=== PATIENT | male | born 1995 | race Caucasian/White ===

== ENCOUNTER 2017-09-23 06:38 | Emergency (ER) | payer OTHER ==
[2017-09-23] MEDS: NS 1,000 ML IV ×2 (07:30)
[2017-09-23] MEDS: METOCLOPRAMIDE INJ 10MG/2ML VIAL (J2765) IV (07:59)
[2017-09-23] MEDS: SUCRALFATE SUSP 1GM/10ML UD PO (08:02)
[2017-09-23 08:07] LABS: BASO % 0.5 % (0.0-1.0); EOS # 0.1 10^3/uL (0.0-0.50); EOS % 1.2 % (0.0-3.0); HEMATOCRIT 47.6 % (42.0-52.0); HEMOGLOBIN 16.3 g/dl (13.5-17.5); IMMATURE GRANULOCYTE % 0.3 % (0-3.0); LYMPH # 2.2 10^3/uL (1.5-6.5); LYMPH % 28.7 % (24.0-44.0); MEAN CORPUSCULAR HGB CONC 34.2 g/dl (32.0-36.5); MEAN CORPUSCULAR VOLUME 87.7 fl (80.0-96.0); MONO # 0.5 10^3/uL (0.0-0.8); MONO % 7.2 % (0.0-5.0); NEUTROPHILS # 4.7 10^3/uL (1.8-7.7); NEUTROPHILS % 62.1 % (36.0-66.0); PLATELET COUNT, AUTOMATED 168 10^3/uL (150-450); RED BLOOD COUNT 5.43 10^6/uL (4.30-6.10); RED CELL DISTRIBUTION WIDTH 13.7 % (11.5-14.5); WHITE BLOOD COUNT 7.5 10^3/uL (4.0-10.0)
[2017-09-23 08:29] LABS: ALBUMIN 3.5 GM/DL (3.2-5.2); ALKALINE PHOSPHATASE 65 U/L (45-117); ALT/SGPT 29 U/L (12-78); ANION GAP 7 MEQ/L (8-16); AST/SGOT 23 U/L (7-37); BILIRUBIN,DIRECT < 0.1 MG/DL (0.0-0.2); BILIRUBIN,TOTAL 0.4 MG/DL (0.2-1.0); BLOOD UREA NITROGEN 8 MG/DL (7-18); CALCIUM LEVEL 8.5 MG/DL (8.5-10.1); CARBON DIOXIDE LEVEL 22 MEQ/L (21-32); CHLORIDE LEVEL 112 MEQ/L (98-107); CREATININE FOR GFR 0.92 MG/DL (0.70-1.30); GLOMERULAR FILTRATION RATE > 60.0 (>60); GLUCOSE, FASTING 86 MG/DL (70-100); LIPASE 80 U/L (73-393); SODIUM LEVEL 141 MEQ/L (136-145)
== END 2017-09-23 10:56 | disposition home or self-care (01) ==
LOC: M ED 06:38
DX: R11.10 Vomiting, unspecified (principal); Z91.013 Allergy to seafood
CPT/HCPCS: J2765

== ENCOUNTER 2018-01-04 12:02 | Emergency (ER) | payer OTHER ==
[2018-01-04 13:22] LABS: VENOUS BASE EXCESS 0.7 (-2.0-2.0); VENOUS HCO3 25.1 MEQ/L (23.0-27.0); VENOUS O2 SATURATION 97.4 % (60.0-80.0); VENOUS PARTIAL PRESSURE CO2 39.6 mmHg (38.0-50.0); VENOUS PARTIAL PRESSURE O2 94.6 mmHg (30.0-50.0); VENOUS STANDARD HCO3 25.1 MEQ/L; VENOUS TOTAL CO2 26.3 MEQ/L (24.0-28.0)
[2018-01-04] MEDS: ACETAMINOPHEN 325 MG TAB PO (13:26)
[2018-01-04 13:27] LABS: BASO # 0.1 10^3/uL (0.0-0.2); BASO % 0.4 % (0.0-1.0); EOS # 0.1 10^3/uL (0.0-0.50); EOS % 0.8 % (0.0-3.0); HEMATOCRIT 45.8 % (42.0-52.0); HEMOGLOBIN 16.1 g/dl (13.5-17.5); IMMATURE GRANULOCYTE % 0.4 % (0-3.0); LYMPH # 1.8 10^3/uL (1.5-6.5); LYMPH % 15.6 % (24.0-44.0); MEAN CORPUSCULAR HEMOGLOBIN 30.6 pg (27.0-33.0); MEAN CORPUSCULAR HGB CONC 35.2 g/dl (32.0-36.5); MEAN CORPUSCULAR VOLUME 87.1 fl (80.0-96.0); MONO # 0.5 10^3/uL (0.0-0.8); MONO % 4.6 % (0.0-5.0); NEUTROPHILS # 9.2 10^3/uL (1.8-7.7); NEUTROPHILS % 78.2 % (36.0-66.0); PLATELET COUNT, AUTOMATED 227 10^3/uL (150-450); RED BLOOD COUNT 5.26 10^6/uL (4.30-6.10); RED CELL DISTRIBUTION WIDTH 12.8 % (11.5-14.5); WHITE BLOOD COUNT 11.7 10^3/uL (4.0-10.0)
[2018-01-04 13:41] LABS: ANION GAP 7 MEQ/L (8-16); BLOOD UREA NITROGEN 15 MG/DL (7-18); CALCIUM LEVEL 8.4 MG/DL (8.5-10.1); CARBON DIOXIDE LEVEL 25 MEQ/L (21-32); CHLORIDE LEVEL 108 MEQ/L (98-107); CREATININE FOR GFR 0.84 MG/DL (0.70-1.30); GLOMERULAR FILTRATION RATE > 60.0 (>60); GLUCOSE, FASTING 93 MG/DL (70-100); POTASSIUM SERUM 3.9 MEQ/L (3.5-5.1); SODIUM LEVEL 140 MEQ/L (136-145)
[2018-01-04 13:58] LABS: INFLUENZA A AMPLIFICATION NEGATIVE (NEGATIVE); INFLUENZA B AMPLIFICATION NEGATIVE (NEGATIVE)
== END 2018-01-04 14:32 | disposition home or self-care (01) ==
LOC: M ED 12:02
DX: J40 Bronchitis, not specified as acute or chronic (principal); Z91.018 Allergy to other foods; F17.210 Nicotine dependence, cigarettes, uncomplicated
CPT/HCPCS: 71046

== ENCOUNTER 2018-01-05 06:42 | Emergency (ER) | payer OTHER ==
[2018-01-05] MEDS: IBUPROFEN 800 MG TAB PO (07:32)
[2018-01-05] MEDS: CYCLOBENZAPRINE 10 MG TAB PO (07:32)
== END 2018-01-05 07:37 | disposition home or self-care (01) ==
LOC: M ED 06:42
DX: S39.012A Strain of muscle, fascia and tendon of lower back, initial encounter (principal); V43.52XA Car driver injured in collision with other type car in traffic accident, initial encounter; Y92.410 Unspecified street and highway as the place of occurrence of the external cause; Z91.013 Allergy to seafood; Z79.2 Long term (current) use of antibiotics
CPT/HCPCS: 99284

== ENCOUNTER 2018-01-18 17:28 | Inpatient (IN) | payer OTHER ==
[2018-01-18] MEDS ORDERED: MORPHINE 4 MG/ML 1ML VIAL/SYRINGE (J2270) As Ordered (17:37)
[2018-01-18] MEDS: MORPHINE 4 MG/ML 1ML VIAL/SYRINGE (J2270) IV ×4 (17:40→23:45)
[2018-01-18] MEDS ORDERED: ISOVUE-370 76% 100ML VIAL (Q9967) As Ordered (17:50)
[2018-01-18 17:52] LABS: BASO # 0.1 10^3/uL (0.0-0.2); BASO % 0.4 % (0.0-1.0); EOS # 0.1 10^3/uL (0.0-0.50); EOS % 0.3 % (0.0-3.0); HEMATOCRIT 47.1 % (42.0-52.0); HEMOGLOBIN 16.5 g/dl (13.5-17.5); IMMATURE GRANULOCYTE % 0.4 % (0-3.0); LYMPH # 2.7 10^3/uL (1.5-6.5); LYMPH % 13.2 % (24.0-44.0); MEAN CORPUSCULAR HEMOGLOBIN 30.8 pg (27.0-33.0); MONO # 1.1 10^3/uL (0.0-0.8); MONO % 5.4 % (0.0-5.0); NEUTROPHILS # 16.6 10^3/uL (1.8-7.7); NEUTROPHILS % 80.3 % (36.0-66.0); PLATELET COUNT, AUTOMATED 238 10^3/uL (150-450); RED BLOOD COUNT 5.35 10^6/uL (4.30-6.10); RED CELL DISTRIBUTION WIDTH 13.1 % (11.5-14.5); WHITE BLOOD COUNT 20.7 10^3/uL (4.0-10.0)
[2018-01-18 18:04] LABS: INR 0.99; PROTHROMBIN TIME 13.1 SECONDS (12.1-14.4)
[2018-01-18 18:06] LABS: PARTIAL THROMBOPLASTIN TIME 23.1 SECONDS (25.4-37.6)
[2018-01-18 18:15] LABS: LACTIC ACID SEPSIS PROTOCOL 1.5 MMOL/L (0.4-2.0)
[2018-01-18 18:16] LABS: ALBUMIN/GLOBULIN RATIO 1.14 (1.00-1.93); ALKALINE PHOSPHATASE 67 U/L (45-117); ALT/SGPT 34 U/L (12-78); AMYLASE 46 U/L (25-115); ANION GAP 7 MEQ/L (8-16); AST/SGOT 20 U/L (7-37); BILIRUBIN,DIRECT 0.1 MG/DL (0.0-0.2); BILIRUBIN,TOTAL 0.4 MG/DL (0.2-1.0); BLOOD UREA NITROGEN 10 MG/DL (7-18); CALCIUM LEVEL 8.7 MG/DL (8.5-10.1); CARBON DIOXIDE LEVEL 28 MEQ/L (21-32); CHLORIDE LEVEL 105 MEQ/L (98-107); CPK CREATINE PHOSPHOKINASE 262 U/L (39-308); CREATININE FOR GFR 0.86 MG/DL (0.70-1.30); ETHYL ALCOHOL (ETHANOL) < 0.003 % (0.000-0.010); GLOMERULAR FILTRATION RATE > 60.0 (>60); GLUCOSE, FASTING 80 MG/DL (70-100); LIPASE 116 U/L (73-393); MB/CK RELATIVE INDEX 0.65 (< OR =4); SODIUM LEVEL 140 MEQ/L (136-145); TOTAL PROTEIN 7.5 GM/DL (6.4-8.2); TROPONIN I < 0.02 NG/ML (< 0.10)
[2018-01-18 19:07] LABS: APPEARANCE, URINE CLEAR (CLEAR); BACTERIA, URINE AUTO NEGATIVE (NEGATIVE); BILIRUBIN, URINE AUTO NEGATIVE (NEGATIVE); BLOOD, URINE BLOOD NEGATIVE (NEGATIVE); COLOR, URINE YELLOW (YELLOW); GLUCOSE, URINE (UA) AUTO NEGATIVE (NEGATIVE); KETONE, URINE AUTO TRACE mg/dL (NEGATIVE); LEUKOCYTE ESTERASE, URINE AUTO NEGATIVE (NEGATIVE); MUCUS, URINE SMALL (NEGATIVE); NITRITE, URINE AUTO NEGATIVE (NEGATIVE); PROTEIN, URINE AUTO NEGATIVE (NEGATIVE); RBC, URINE AUTO 1 /HPF (0-3); SPECIFIC GRAVITY URINE AUTO 1.029 (1.002-1.035); SQUAMOUS EPITHELIAL CELL UR AU 0 /HPF (0-6); UROBILINOGEN, URINE AUTO 0.2 mg/dL (0.0-2.0); WBC, URINE AUTO 1 /HPF (0-3)
[2018-01-18 19:23] LABS: AMPHETAMINES LEVEL URINE NEGATIVE (NEGATIVE); BARBITURATES URINE NEGATIVE (NEGATIVE); BENZODIAZEPINES URINE NEGATIVE (NEGATIVE); CANNABINOIDS URINE POSITIVE (NEGATIVE); COCAINE METABOLITE URINE NEGATIVE (NEGATIVE); METHADONE URINE NEGATIVE (NEGATIVE); OPIATES URINE POSITIVE (NEGATIVE); PHENCYCLIDINE URINE NEGATIVE (NEGATIVE)
[2018-01-18] MEDS ORDERED: BISACODYL 5 MG TAB PO (20:15)
[2018-01-18] MEDS ORDERED: ONDANSETRON 4MG/2ML VIAL (J2405) IV (20:15)
[2018-01-18] MEDS ORDERED: PERCOCET 5MG/325MG TAB PO (20:15)
[2018-01-18] MEDS ORDERED: ACETAMINOPHEN 500 MG TAB PO (20:15)
[2018-01-18] MEDS: PERCOCET 5MG/325MG TAB PO (20:38)
[2018-01-18 20:45] LABS: MYOGLOBIN 275 NG/ML (16-116)
[2018-01-18] MEDS: NICOTINE 14 MG/24 HR TRANSDERMAL TD (23:21)
[2018-01-19 07:18] LABS: CPK CREATINE PHOSPHOKINASE 405 U/L (39-308)
[2018-01-19] MEDS: PERCOCET 5MG/325MG TAB PO (07:46)
== END 2018-01-19 10:07 | disposition home or self-care (01) | DRG 914 ==
LOC: M ED 17:28 → M ED INP 20:03 → M PED 22:00
DX: S77.12XA Crushing injury of left thigh, initial encounter (principal); W23.0XXA Caught, crushed, jammed, or pinched between moving objects, initial encounter; Y92.009 Unspecified place in unspecified non-institutional (private) residence as the place of occurrence of the external cause

== ENCOUNTER 2018-01-25 18:31 | Inpatient (IN) | payer OTHER ==
[~2018-01-25] VITALS: Ht 167.6 cm; Wt 74.6 kg
[~2018-01-25 18:31] MED LIST: CYCL10TA PO; IBUP-1022 PO; PERC5TAB12 PO; PROAAER10 INH; ZITHTAB PO
[2018-01-25] MEDS ORDERED: NAPR-885 PO (18:48)
[2018-01-25] MEDS ORDERED: ONDANSETRON 4MG/2ML VIAL (J2405) IV ONE (19:15)
[2018-01-25] MEDS ORDERED: CHARCOAL ACTIVATED LIQUID 25 GM/120 ML BTL PO ONE (19:15)
[2018-01-25] MEDS ORDERED: NS 1,000 ML IV ONE (19:15)
[2018-01-25 19:19] LABS: HEMATOCRIT 44.7 % (42.0-52.0); HEMOGLOBIN 15.4 g/dl (13.5-17.5); MEAN CORPUSCULAR HGB CONC 34.5 g/dl (32.0-36.5); MEAN CORPUSCULAR VOLUME 89.9 fl (80.0-96.0); PLATELET COUNT, AUTOMATED 220 10^3/uL (150-450); RED BLOOD COUNT 4.97 10^6/uL (4.30-6.10); WHITE BLOOD COUNT 12.8 10^3/uL (4.0-10.0)
[2018-01-25 19:26] LABS: AMPHETAMINES LEVEL URINE NEGATIVE (NEGATIVE); BARBITURATES URINE NEGATIVE (NEGATIVE); BENZODIAZEPINES URINE NEGATIVE (NEGATIVE); CANNABINOIDS URINE POSITIVE (NEGATIVE); COCAINE METABOLITE URINE NEGATIVE (NEGATIVE); METHADONE URINE NEGATIVE (NEGATIVE); OPIATES URINE NEGATIVE (NEGATIVE); PHENCYCLIDINE URINE NEGATIVE (NEGATIVE)
--- NOTE | 2018-01-25 19:36 | ECGEPIP ---
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
[2018-01-25 20:06] LABS: ACETAMINOPHEN LEVEL < 2.0 UG/ML (10.0-30.0); ALT/SGPT 33 U/L (12-78); BILIRUBIN,DIRECT < 0.1 MG/DL (0.0-0.2); BILIRUBIN,TOTAL 0.7 MG/DL (0.2-1.0); BLOOD UREA NITROGEN 9 MG/DL (7-18); CALCIUM LEVEL 8.4 MG/DL (8.5-10.1); CARBON DIOXIDE LEVEL 27 MEQ/L (21-32); CHLORIDE LEVEL 105 MEQ/L (98-107); CREATININE FOR GFR 0.95 MG/DL (0.70-1.30); ETHYL ALCOHOL (ETHANOL) < 0.003 % (0.000-0.010); GLOMERULAR FILTRATION RATE > 60.0 (>60); GLUCOSE, FASTING 102 MG/DL (70-100); POTASSIUM SERUM 3.7 MEQ/L (3.5-5.1); SALICYLATE LEVEL < 1.7 MG/DL (5.0-30.0); SODIUM LEVEL 141 MEQ/L (136-145); THYROID STIMULATING HORMONE 0.826 uIU/ML (0.358-3.740); TOTAL PROTEIN 6.9 GM/DL (6.4-8.2)
[2018-01-26] MEDS ORDERED: ACETAMINOPHEN TAB 650MG DOSE (2X325MG) PO PRN (01:00)
[2018-01-26] MEDS ORDERED: MAALOX 30 ML SUSP *UDC PO PRN (01:00)
[2018-01-26] MEDS ORDERED: traZODone 50 MG TAB PO PRN (01:00)
[2018-01-26] MEDS ORDERED: MOM 30ML SUSPENSION UDC PO PRN (01:00)
[2018-01-26 03:05] VITALS: BP 136/69
[2018-01-26 06:51] VITALS: BP 116/67
[2018-01-26] MEDS: NICOTINE 21MG/24HR 1 EA TRANSDERMAL TD SCH (09:30)
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
[2018-01-26 18:00] VITALS: BP 143/84
[2018-01-27 06:15] VITALS: BP 124/60
[2018-01-27 07:05] LABS: HEMATOCRIT 45.7 % (42.0-52.0); HEMOGLOBIN 15.6 g/dl (13.5-17.5); MEAN CORPUSCULAR HGB CONC 34.1 g/dl (32.0-36.5); MEAN CORPUSCULAR VOLUME 90.7 fl (80.0-96.0); PLATELET COUNT, AUTOMATED 211 10^3/uL (150-450); RED BLOOD COUNT 5.04 10^6/uL (4.30-6.10)
[2018-01-27] MEDS: NICOTINE 21MG/24HR 1 EA TRANSDERMAL TD SCH (09:14)
[2018-01-27 18:00] VITALS: BP 111/57
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
[2018-01-27] MEDS ORDERED: NICO21PAT TD (19:04)
[2018-01-28 06:50] VITALS: BP 104/59
[2018-01-28] MEDS: NICOTINE 21MG/24HR 1 EA TRANSDERMAL TD SCH (09:00)
--- NOTE | 2018-01-29 13:07 | MHDS ---
DATE OF ADMISSION: 01/26/2018 DATE OF DISCHARGE: 01/28/2018 DIAGNOSES: 1. Major depressive disorder. 2. Marijuana use disorder. 3. Rule out adjustment disorder with depressed and anxious mood. IDENTIFYING DATA: He is a 22-year-old male who presented to emergency room for overdosing on pills, brought from [place]. 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 For details about history of present illness, past psychiatric history, medical history, family history, social history please refer to the initial evaluation. COURSE IN THE HOSPITAL: The patient initially stated that he was depressed and afterwards he reported that he is not depressed; however, the patient was using cannabis and he has cannabis use disorder. It was thought that it is probably because of the substance use that he had suicidal thoughts and he was given trazodone to help him with his sleep and continued on individual, group and milieu therapy. His depression resolved and he started attending groups and activities. He was stable at the time of discharge. VITAL SIGNS: Temperature 96.7, respiratory rate is 16, pulse is 64, blood pressure 114/69. MEDICATIONS: - trazodone 50 mg at night LABORATORIES: Toxicology is positive for cannabis. CMP and CBC within normal limits. REVIEW OF SYSTEMS: Without any chest pain, palpitations. Denied any abdominal pain, dysuria. Denied any shortness of breath or cough. Denied numbness, tingling. Gait is normal. PLAN: The patient will be discharged back to [facility].
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
== END 2018-01-28 11:15 | disposition home or self-care (01) | DRG 881 ==
LOC: M ED 18:31 → M ED INP 01-26 00:51 → M PSY 01-26 02:00
PROVIDERS: ADMIT Psychiatry & Neurology Psychiatry; ATTEND Psychiatry & Neurology Psychiatry
DX: F32.9 Major depressive disorder, single episode, unspecified (principal); F17.200 Nicotine dependence, unspecified, uncomplicated; F12.90 Cannabis use, unspecified, uncomplicated; F43.23 Adjustment disorder with mixed anxiety and depressed mood; Z91.013 Allergy to seafood; D72.829 Elevated white blood cell count, unspecified

== ENCOUNTER 2018-08-09 01:13 | Emergency (ER) | payer OTHER ==
[~2018-08-09] VITALS: Ht 167.6 cm; Wt 77.3 kg
[~2018-08-09 01:13] MED LIST changes: +NAPR-885 PO; +NICO21PAT TD
[2018-08-09] MEDS ORDERED: NS 1,000 ML IV ONE (01:45)
[2018-08-09 02:40] LABS: BASO # 0.1 10^3/uL (0.0-0.2); BASO % 0.7 % (0.0-1.0); EOS # 0.2 10^3/uL (0.0-0.50); EOS % 1.9 % (0.0-3.0); HEMATOCRIT 42.6 % (42.0-52.0); HEMOGLOBIN 14.7 g/dl (13.5-17.5); LYMPH # 2.6 10^3/uL (1.5-6.5); MEAN CORPUSCULAR HEMOGLOBIN 30.6 pg (27.0-33.0); MEAN CORPUSCULAR HGB CONC 34.5 g/dl (32.0-36.5); MEAN CORPUSCULAR VOLUME 88.6 fl (80.0-96.0); MONO # 0.8 10^3/uL (0.0-0.8); MONO % 8.6 % (0.0-5.0); NEUTROPHILS # 5.5 10^3/uL (1.8-7.7); NEUTROPHILS % 60.6 % (36.0-66.0); PLATELET COUNT, AUTOMATED 177 10^3/uL (150-450); RED BLOOD COUNT 4.81 10^6/uL (4.30-6.10); WHITE BLOOD COUNT 9.1 10^3/uL (4.0-10.0)
[2018-08-09 03:04] LABS: ALBUMIN 3.5 GM/DL (3.2-5.2); ALT/SGPT 25 U/L (12-78); BILIRUBIN,DIRECT < 0.1 MG/DL (0.0-0.2); BILIRUBIN,TOTAL 0.3 MG/DL (0.2-1.0); BLOOD UREA NITROGEN 14 MG/DL (7-18); CALCIUM LEVEL 8.4 MG/DL (8.5-10.1); CARBON DIOXIDE LEVEL 28 MEQ/L (21-32); CHLORIDE LEVEL 108 MEQ/L (98-107); CREATININE FOR GFR 0.94 MG/DL (0.70-1.30); GLOMERULAR FILTRATION RATE > 60.0 (>60); GLUCOSE, FASTING 91 MG/DL (70-100); LIPASE 464 U/L (73-393); POTASSIUM SERUM 4.3 MEQ/L (3.5-5.1); SODIUM LEVEL 141 MEQ/L (136-145); TOTAL PROTEIN 6.7 GM/DL (6.4-8.2)
[2018-08-09 03:26] VITALS: BP 115/55
== END 2018-08-09 03:33 | disposition home or self-care (01) ==
LOC: M ED 01:13
DX: K52.9 Noninfective gastroenteritis and colitis, unspecified (principal); F17.210 Nicotine dependence, cigarettes, uncomplicated; Z91.013 Allergy to seafood

== ENCOUNTER 2018-09-02 14:00 | Inpatient (IN) | payer OTHER ==
[~2018-09-02] VITALS: Ht 167.6 cm; Wt 77.0 kg
[2018-09-02 15:46] LABS: HEMATOCRIT 45.2 % (42.0-52.0); HEMOGLOBIN 15.8 g/dl (13.5-17.5); MEAN CORPUSCULAR HEMOGLOBIN 31.5 pg (27.0-33.0); PLATELET COUNT, AUTOMATED 193 10^3/uL (150-450); RED BLOOD COUNT 5.02 10^6/uL (4.30-6.10); WHITE BLOOD COUNT 9.1 10^3/uL (4.0-10.0)
[2018-09-02 16:17] LABS: AMPHETAMINES LEVEL URINE NEGATIVE (NEGATIVE); BARBITURATES URINE NEGATIVE (NEGATIVE); BENZODIAZEPINES URINE NEGATIVE (NEGATIVE); CANNABINOIDS URINE POSITIVE (NEGATIVE); COCAINE METABOLITE URINE NEGATIVE (NEGATIVE); METHADONE URINE NEGATIVE (NEGATIVE); OPIATES URINE NEGATIVE (NEGATIVE); PHENCYCLIDINE URINE NEGATIVE (NEGATIVE)
[2018-09-02 16:27] LABS: ACETAMINOPHEN LEVEL < 2.0 UG/ML (10.0-30.0); ALBUMIN 4.1 GM/DL (3.2-5.2); ALT/SGPT 52 U/L (12-78); BILIRUBIN,DIRECT 0.1 MG/DL (0.0-0.2); BILIRUBIN,TOTAL 0.5 MG/DL (0.2-1.0); BLOOD UREA NITROGEN 14 MG/DL (7-18); CARBON DIOXIDE LEVEL 29 MEQ/L (21-32); CHLORIDE LEVEL 105 MEQ/L (98-107); CREATININE FOR GFR 0.95 MG/DL (0.70-1.30); ETHYL ALCOHOL (ETHANOL) < 0.003 % (0.000-0.010); GLOMERULAR FILTRATION RATE > 60.0 (>60); GLUCOSE, FASTING 107 MG/DL (70-100); POTASSIUM SERUM 3.8 MEQ/L (3.5-5.1); SALICYLATE LEVEL < 1.7 MG/DL (5.0-30.0); SODIUM LEVEL 140 MEQ/L (136-145); THYROID STIMULATING HORMONE 0.916 uIU/ML (0.358-3.740); TOTAL PROTEIN 7.5 GM/DL (6.4-8.2)
[2018-09-02] MEDS ORDERED: traZODone 50 MG TAB PO PRN (17:30)
[2018-09-02] MEDS ORDERED: MAALOX 30 ML SUSP *UDC PO PRN (17:30)
[2018-09-02 21:02] VITALS: BP 123/59
[2018-09-02] MEDS: MOM 30ML SUSPENSION UDC PO PRN (21:59)
[2018-09-03 06:48] VITALS: BP 122/60
[2018-09-03] MEDS: NICOTINE 21MG/24HR 1 EA TRANSDERMAL TD SCH (09:06)
--- NOTE | 2018-09-03 09:24 | MHHPEPDOC ---
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. When the patient was met with, he described significant depression with loss of interest, fatigue, concentration and focus problems, severe depressed mood and suicidal thoughts for the last several months. He described that the stressors continually make him more anxious where he generally worries about "everything", but denies any overt episodes of panic. He describes that he is not on any current medication, he was recently admitted to the inpatient unit earlier this year. Review Of Systems Depression: As above. Anxiety: As above. Toshia: The patient denies any episodes of euphoria/dysphoria associated with decreased need for sleep, hedonism, talkatively or impulsivity lasting longer than 5 days. Psychotic: The patient denies any experiences of auditory or visual hallucinations. They deny any episodes of paranoia or delusional thinking in the past Trauma: The patient denies any traumatic events associated with nightmares or intrusive thoughts. Borderline: Not screened at this time. Past Psychiatric History The patient has a history of reported depression, it is unclear whether adjus tment or not. He was admitted to the inpatient unit in January 2018 for similar problems. He reports a history of recent suicidal thoughts, but none in the past. He is currently on no medication and does not appear to have been tried on medications in the past. Allergies Please see below. Family Psychiatric History The patient denies any family history of mental health problems, substance abuse or suicide. 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 He graduated high school, grew up in [place]. He described that he had had a difficult adjustment to the local area during the [place]. He is currently being chapter out of the due to being convicted of possessing drugs namely cannabis. He has had difficulties with his superiors and [place] an ex-girlfriend who reportedly has possession of the homes. He generally resides in the [facility], but reports never being . Substance Abuse History The patient reports having a history of alcohol use namely drinking one to three times a week roughly eight drinks at a time primarily in a binging pattern, however, he reports only one binge in the last three months. He reports tobacco use significantly and marijuana, but denies any other illicit drugs. He reports that he has not drunk an alcohol in the last three weeks. Medical History Patient has no significant past medical history. Mental Status Examination General: Well dressed with good hygiene Speech: Spontaneous and fluid Thought processes: Linear and logical MSK: Smooth and coordinated gait, no signs of tremors or involuntary orofacial movements Thought content: Hopeless Abstract reasoning, and computation: Intact Description of associations: Intact Description of abnormal or psychotic thoughts: Denies any suicidal or homicidal ideation. Denies any auditory or visual hallucinations. Does not appear to be responding to internal stimuli. Does not appear to be endorsing any bizarre or paranoid ideation. Judgment: Poor Insight: Poor Orientation: Alert and orientated 3 Cognition: Grossly normal Recent and remote memory: Intact Attention span and concentration: Intact Fund of knowledge: Adequate Mood: "Fine" Affect: Dysthymic with a constricted range. Diagnoses Unspecified depressive disorder. Rule out adjustment versus MDD. Tobacco use disorder. Alcohol use disorder. Cannabis use disorder. 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 depression, however, a trial of medication could be helpful due to the increasing suicidal thoughts. Disposition Patient will need an admission likely greater than two midnights in order to stabilize his depressive symptoms and titrate an appropriate medication. Problem List 1. Risk for suicide. 2. Substance abuse. 3. Depression. Initial Treatment Plan 1. Patient was admitted on a 9.39 legal status. 2. Complete history was obtained. 3. With patients permission, family will be contacted and database will be expanded. 4. Patients medication regimen will be reviewed and changed accordingly. 5. Patient will be provided with protected environment. 6. Patient will be treated with individual, group, and milieu therapies. 7. Patient will receive supportive psych-education. 8. Discharge planning will commence immediately. 9. Outpatient follow-up treatment will be strongly recommended. 10. The initial treatment plan will focus initially on: Start Wellbutrin 150 mg extended-release daily. Explained the risks, benefits and potential side effects to the patient of which he elected to start medication. Estimated Length Of Stay 3 days. Time Spent 30 minutes. Thursday Vital Signs Vital Signs Date Time Temp Pulse Resp B/P (MAP) Pulse Ox O2 Delivery O2 Flow Rate FiO2 09/03/18 08:04 Room Air 09/03/18 06:48 99.0 74 16 122/60 (80) 09/02/18 21:02 97 Laboratory Data 24H Labs Laboratory Tests 2 09/02/18 15:15: Nucleated Red Blood Cells % (auto) 0.0, Anion Gap 6L, Glomerular Filtration Rate > 60.0, Calcium Level 9.0, Aspartate Amino Transf (AST/SGOT) 82H, Alanine Aminotransferase (ALT/SGPT) 52, Alkaline Phosphatase 66, Total Bilirubin 0.5, Direct Bilirubin 0.1, Total Protein 7.5, Albumin 4.1, Albumin/Globulin Ratio 1.21, Thyroid Stimulating Hormone (TSH) 0.916, Salicylates Level < 1.7L, Acetaminophen Level < 2.0L, Ethyl Alcohol Level < 0.003 09/02/18 15:40: Urine Amphetamines Screen NEGATIVE, Urine Benzodiazepines Screen NEGATIVE, Urine Opiates Screen NEGATIVE, Urine Methadone Screen NEGATIVE, Urine Barbiturates Screen NEGATIVE, Urine Phencyclidine Screen NEGATIVE, Urine Cocaine Metabolite Screen NEGATIVE, Urine Cannabinoids Screen POSITIVEH CBC/BMP Laboratory Tests 09/02/18 15:15 Red Blood Count 5.02, Mean Corpuscular Volume 90.0, Mean Corpuscular Hemoglobin 31.5, Mean Corpuscular Hemoglobin Concent 35.0, Red Cell Distribution Width 12.8 Medications No Active Prescriptions or Reported Meds Allergies Coded Allergies: FISH (Verified Allergy, Severe, anaphylaxis, 01/05/18) KALE ARMANDO DO Sep 03, 2018 09:24
[2018-09-03] MEDS ORDERED: buPROPion **XL** TABLET 150MG (WELLBUTRIN XL) PO ONE (10:15)
[2018-09-03] MEDS: buPROPion **XL** TABLET 150MG (WELLBUTRIN XL) PO SCH (10:16)
--- NOTE | 2018-09-03 14:13 | REP ---
REASON FOR EXAM: Knee pain, no trauma. No priors. AP and lateral views show no abnormalities. Electronically Signed by Roque Stein DO 09/03/2018 02:16 P
[2018-09-03] MEDS ORDERED: NICOTINE 21MG/24HR 1 EA TRANSDERMAL TD ONE (16:00)
--- NOTE | 2018-09-03 17:15 | REP ---
MRI RIGHT KNEE: TECHNIQUE: Axial proton density fat saturation, sagittal proton density T2 STIR, water excitation, coronal proton density, proton density fat saturation. The menisci show no evidence of a tear. The cruciate and collateral ligaments are intact. The extensor mechanism is intact. No osteochondral defect is seen. There is no bone marrow edema or occult fracture. There is a small joint effusion. There is no popliteal cyst. IMPRESSION: Small joint effusion. No evidence of internal derangement. No osteochondral defect. Electronically Signed by Duc Addison MD 09/07/2018 05:42 P
[2018-09-03 17:38] VITALS: BP 129/66
[2018-09-03] MEDS: RAMELTEON 8 MG TAB (ROZEREM) PO SCH (21:21)
[2018-09-03] MEDS: MOM 30ML SUSPENSION UDC PO PRN (21:21)
[2018-09-03] MEDS: OLANZapine ORAL DISINTEGRATING TAB 5MG PO PRN (21:21)
[2018-09-04 06:54] VITALS: BP 112/62
[2018-09-04] MEDS: buPROPion **XL** TABLET 150MG (WELLBUTRIN XL) PO SCH (09:42)
[2018-09-04] MEDS: NICOTINE 21MG/24HR 1 EA TRANSDERMAL TD SCH (09:44)
[2018-09-04 14:09] LABS: ANTINUCLEAR ANTIBODIES DIRECT Negative (Negative)
[2018-09-04 18:00] VITALS: BP 124/60
[2018-09-04] MEDS: RAMELTEON 8 MG TAB (ROZEREM) PO SCH (21:27)
[2018-09-04] MEDS ORDERED: zolPIDEM TARTRATE 5 MG TAB PO ONE (22:15)
[2018-09-04 22:58] VITALS: BP 125/70
[2018-09-05 07:00] VITALS: BP 114/69
--- NOTE | 2018-09-05 07:23 | IPNPDOC ---
Date Seen The patient was seen on 09/03/18. Progress Note CHIEF COMPLAINT: Suicide Ideation HISTORY OF PRESENTING ILLNESS: 22yoM admitted to [facility] for unspecified depressive disorder, and suicide ideation being medically examined today. He c/o pain in the right knee and low back pain worse when he does physical training and admits to taking up to 1600 mg of advil daily as outpt. He denies any falls due to knee instability, swelling, or redness. He denies any fevers, chills, weakness, fatigue, HEART, CP, SOB, cough, palpitations, abdominal pain, N/V/D or changes in bowel or bladder habits. 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 Well-nourished, well developed. No acute distress. Alert and oriented x 3. Pleasant, interactive. no conversational dyspnea or use of accessory respiratory muscles HEENT: Normocephalic, atraumatic. Pupils are equal, round, and reactive to light. Extraocular movements are intact. No nystagmus appreciated. Sclera are nonicteric. Conjunctiva without injection. Nose midline. Nasal turbinates without bogginess. EACs both patent BL. TMs both visualized and beard with good cone of light, no bulging or erythema. No facial asymmetry. Moist mucous membranes. Dentition fair. Pharynx pink and moist, no cobblestoning. Neck supple, trachea midline. No lymphadenopathy or thyromegaly appreciated. CHEST: Regular rate and rhythm, +S1, +S2, no murmurs, nondisplaced PMI, no rubs, no gallops LUNGS: Clear to auscultation bilaterally. No wheezes, rales, or rhonchi. Breathing appears symmetric and easy. Patient is speaking in full sentences. No accessory muscle use. no adventitious breath sounds ABD: Round, soft, non-tender, non-distended. +Bowel sounds throughout. No rebound or guarding. No costovertebral angle tenderness. EXT: Pulses 2+ bilaterally dorsalis pedis and radial. No lower extremity edema appreciated. No calf pain. Right knee no effusion, erythema, or tenderness. limited rom with internal rotation due to pain. SKIN: [place], dry, warm. No rashes. tattoos NEURO: Alert and oriented x 3. Cranial nerves III-XII are intact. No focal deficits appreciated. LABORATORY DATA, IMAGING STUDIES, MICROBIOLOGY: REVIEWED, PLS SEE BELOW ASSESSMENT AND PLAN: 22yoM admitted to [facility] for unspecified depressive disorder, and suicide ideation being medically examined today. He c/o pain in the right knee and low back pain worse when he does physical training and admits to taking up to 1600 mg of advil daily as outpt. He denies any falls due to knee instability, swelling, or redness. He denies any fevers, chills, weakness, fatigue, HEART, CP, SOB, cough, palpitations, abdominal pain, N/V/D or changes in bowel or bladder habits. Suicide Ideation/ Depression managed by primary psychiatric team Right knee pain no c/o of fever, erythema, joint effusion no h/o rheumatological disease or recent trauma will check Xray and MRI right knee VS, I&O, 24H, Fishbone Vital Signs/I&O Vital Signs Date Time Temp Pulse Resp B/P (MAP) Pulse Ox O2 Delivery O2 Flow Rate FiO2 09/03/18 08:04 Room Air 09/03/18 06:48 99.0 74 16 122/60 (80) 09/02/18 21:02 97 Laboratory Data 24H LABS Laboratory Tests 2 09/02/18 15:15: Nucleated Red Blood Cells % (auto) 0.0, Anion Gap 6L, Glomerular Filtration Rate > 60.0, Calcium Level 9.0, Aspartate Amino Transf (AST/SGOT) 82H, Alanine Aminotransferase (ALT/SGPT) 52, Alkaline Phosphatase 66, Total Bilirubin 0.5, Direct Bilirubin 0.1, Total Protein 7.5, Albumin 4.1, Albumin/Globulin Ratio 1.21, Thyroid Stimulating Hormone (TSH) 0.916, Salicylates Level < 1.7L, Acetaminophen Level < 2.0L, Ethyl Alcohol Level < 0.003 09/02/18 15:40: Urine Amphetamines Screen NEGATIVE, Urine Benzodiazepines Screen NEGATIVE, Urine Opiates Screen NEGATIVE, Urine Methadone Screen NEGATIVE, Urine Barbiturates Screen NEGATIVE, Urine Phencyclidine Screen NEGATIVE, Urine Cocaine Metabolite Screen NEGATIVE, Urine Cannabinoids Screen POSITIVEH 09/03/18 12:27: Erythrocyte Sedimentation Rate 2, C-Reactive Protein, Quantitative < 0.30 CBC/BMP Laboratory Tests 09/02/18 15:15 Red Blood Count 5.02, Mean Corpuscular Volume 90.0, Mean Corpuscular Hemoglobin 31.5, Mean Corpuscular Hemoglobin Concent 35.0, Red Cell Distribution Width 12.8 HUSSEIN HEBERT MD Sep 03, 2018 14:35
[2018-09-05] MEDS: buPROPion **XL** TABLET 150MG (WELLBUTRIN XL) PO SCH (08:08)
[2018-09-05] MEDS: NICOTINE 21MG/24HR 1 EA TRANSDERMAL TD SCH (08:08)
[2018-09-05 18:00] VITALS: BP 142/78
[2018-09-05] MEDS: OLANZapine ORAL DISINTEGRATING TAB 5MG PO PRN (19:30)
[2018-09-05] MEDS: RAMELTEON 8 MG TAB (ROZEREM) PO SCH (21:00)
[2018-09-05] MEDS: zolPIDEM TARTRATE 5 MG TAB PO PRN (22:02)
[2018-09-06 06:42] VITALS: BP 123/71
--- NOTE | 2018-09-06 07:52 | MHIPN ---
DATE: 09/04/2018 The patient today states that he continues to feel depressed, although not having any suicidal thoughts. MENTAL STATUS EXAMINATION: This is alert and oriented times three. He is pleasant, cooperative, verbally spontaneous. Eye contact is fair. Psychomotor activity is normal. There is no formal thought disorder noted. Mood is depressed. Affect is full range and appropriate. He is not psychotic, suicidal or homicidal. Concentration and memory are good. Insight and judgment fair. DIAGNOSES: 1. Major depressive disorder, recurrent, moderate. 2. Cannabis use disorder. TREATMENT PLAN: At this point we will continue to further evaluate the patient for continued resolution of suicidal ideation and for stabilization of his mood. We will continue to titrate medication as indicated.
--- NOTE | 2018-09-06 07:53 | MHIPN ---
DATE: 09/05/2018 The patient tells me that his mood is okay, but he did not sleep good last night despite the fact we increased Seroquel to 100 mg and so I decided to go ahead, when they called me last night that he was not sleeping, to give him an Ambien and he said that it helped. MENTAL STATUS EXAMINATION: He is alert and oriented times three. He is verbally spontaneous. Eye contact is fairly good. There is no formal thought disorder noted. He says his mood is good. Affect is full range and appropriate. He is not psychotic, suicidal or homicidal. Concentration is fair. Memory intact. Insight and judgment fair. DIAGNOSES: 1. Major depressive disorder. 2. Cannabis use disorder. TREATMENT PLAN: At this point, the patient will be further monitored for continued elevation and stabilization of his mood and continued resolution of any suicidal ideations. Again, we have added Ambien 10 mg at night as needed for insomnia.
[2018-09-06] MEDS: buPROPion **XL** TABLET 150MG (WELLBUTRIN XL) PO SCH (08:12)
[2018-09-06] MEDS: NICOTINE 21MG/24HR 1 EA TRANSDERMAL TD SCH (08:12)
--- NOTE | 2018-09-06 11:41 | MHIPNPDOC ---
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 Interval History The patient is met with today. He describes that he is worried about his commanders finding out about his positive cannabinoid test. On admission, he reports that he still feels depressed, anxious and unable to sleep. He reports the Ambien is helpful for his sleeping and the Wellbutrin is helpful for his mood. He notes his moods are much less variable and that he is able to attend to his needs better, however, he reports that he still feels stressed when thinking about work and feels that he is not ready to go home. Staff reported the patient has been attempting to be more social, but generally has difficulties with being reserved on the unit. Review Of Systems The patient reports some mild improvement in energy and focus, however, still reports low mood, loss of interest and high anxiety levels as well as insomnia. Denies any side effects from Wellbutrin at this time. Psychotherapy None on this visit. Vital Signs Reviewed. Mental Status Examination General: Well dressed with good hygiene Speech: Spontaneous and fluid Thought processes: Linear and logical MSK: Smooth and coordinated gait, no signs of tremors or involuntary orofacial movements Thought content: Hopeless Abstract reasoning, and computation: Intact Description of associations: Intact Description of abnormal or psychotic thoughts: Denies any suicidal or homicidal ideation. Denies any auditory or visual hallucinations. Does not appear to be responding to internal stimuli. Does not appear to be endorsing any bizarre or paranoid ideation. Judgment: Improved. Insight: Improved. Orientation: Alert and orientated 3 Cognition: Grossly normal Recent and remote memory: Intact Attention span and concentration: Intact Fund of knowledge: Adequate Mood: "Fine" Affect: Dysthymic with a constricted range. Diagnoses Unspecified depressive disorder. Cannabis use disorder. Assessment and Plan The patient appears to be making some modest improvements on the Wellbutrin 150 mg daily and this will be continued. Ambien 10 mg nightly will be continued for sleep, however, this is likely a poor option for outpatient due to its control substance nature. The patient needs further time in order to titrate the medications and observe if helpful. Disposition The patient will need a further inpatient admission in order to address his depression as well as titrate his medications to effective dose. Time Spent 15 minutes face to face. Thursday Vital Signs Vital Signs Date Time Temp Pulse Resp B/P (MAP) Pulse Ox O2 Delivery O2 Flow Rate FiO2 09/06/18 06:42 97.9 50 12 123/71 (88) 09/05/18 07:47 Room Air 09/04/18 22:58 99 Current Medications Current Medications Medications (Trade) Dose Ordered Sig/Keesha Route PRN Reason Start Time Stop Time Status Last Admin Dose Admin Acetaminophen (Tylenol Tab) 650 mg Q6HP PRN PO HEADACHE or DISCOMFORT 09/02/18 17:30 Al Hydrox/Mg Hydrox/Simethicone (Mylanta) 30 ml Q4HP PRN PO HEARTBURN/INDIGESTION 09/02/18 17:30 Bupropion HCl (Wellbutrin Xl) 150 mg DAILY PO 09/03/18 09:00 09/06/18 08:12 Home Med (Med Rec Complete!) ASDIRECTED XX 09/02/18 17:45 09/02/18 17:45 DC Magnesium Hydroxide (Milk Of Magnesia) 30 ml DAILYPRN PRN PO CONSTIPATION 09/02/18 17:30 09/03/18 21:21 Nicotine (Nicoderm Cq 21mg) 1 patch DAILY TD 09/03/18 09:00 09/06/18 08:12 Olanzapine (ZyPREXA ZYDIS) 5 mg Q8HP PRN PO ANXIETY/AGITATION 09/02/18 17:30 09/05/18 19:30 Ramelteon (Rozerem) 8 mg QHS PO 09/03/18 21:00 09/04/18 21:27 Trazodone HCl (Desyrel) 50 mg QHSP PRN PO INSOMNIA 09/02/18 17:30 09/03/18 10:05 DC 09/02/18 21:59 Zolpidem Tartrate (Ambien) 10 mg QHSP PRN PO insomnia 09/05/18 15:00 09/05/18 22:02 Allergies Coded Allergies: FISH (Verified Allergy, Severe, anaphylaxis, 01/05/18) KALE ARMANDO DO Sep 06, 2018 11:41
[2018-09-06 18:00] VITALS: BP 133/86
[2018-09-06] MEDS: RAMELTEON 8 MG TAB (ROZEREM) PO SCH (21:40)
[2018-09-06] MEDS: ACETAMINOPHEN TAB 650MG DOSE (2X325MG) PO PRN (21:40)
[2018-09-06] MEDS: zolPIDEM TARTRATE 5 MG TAB PO PRN (22:35)
[2018-09-07 07:01] VITALS: BP 107/73
[2018-09-07] MEDS: buPROPion **XL** TABLET 150MG (WELLBUTRIN XL) PO SCH (08:01)
[2018-09-07] MEDS: NICOTINE 21MG/24HR 1 EA TRANSDERMAL TD SCH (08:02)
[2018-09-07] MEDS: ACETAMINOPHEN TAB 650MG DOSE (2X325MG) PO PRN ×2 (08:02→22:46)
--- NOTE | 2018-09-07 16:01 | MHIPNPDOC ---
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 Interval History The patient is met with today, both individually and in group therapy. 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 He describes his depression is improving with less hopelessness and improved mood. He reports his fatigue and energy problems are resolving, however, he worries about his future as he has had an argument with his parents, where they have stated that he no longer is welcome to stay with them if he leaves the . He does feel trapped in this situation, however, explored with patient the idea of mindfulness with positive effects. Staff reports the patient has been attending to his needs, going to groups and is generally pleasant. Review Of Systems Patient denies any side effects from Wellbutrin at this time. He reports some over sedation from the combination of Rozerem and Ambien the previous evening, but no dizziness. Psychotherapy None on this visit. Vital Signs Reviewed. Mental Status Examination General: Well dressed with good hygiene Speech: Spontaneous and fluid Thought processes: Linear and logical MSK: Smooth and coordinated gait, no signs of tremors or involuntary orofacial movements Thought content: Future orientated Abstract reasoning, and computation: Intact Description of associations: Intact Description of abnormal or psychotic thoughts: Denies any suicidal or homicidal ideation. Denies any auditory or visual hallucinations. Does not appear to be responding to internal stimuli. Does not appear to be endorsing any bizarre or paranoid ideation. Judgment: Improving Insight: Improving Orientation: Alert and orientated 3 Cognition: Grossly normal Recent and remote memory: Intact Attention span and concentration: Intact Fund of knowledge: Adequate Mood: "okay" Affect: Dysthymic with a constricted range. Diagnoses Unspecified depressive disorder: Improving. Cannabis use disorder: Stable. Assessment and Plan The patient appears to be making some progress in groups and in individual one-on-one sessions. The Wellbutrin 150 mg as well as Rozerem combination is ideal. The Ambien taken together last night likely over sedated him and will likely be unhelpful as an outpatient, and thus will be discontinued. Disposition The patient will need a further inpatient admission in order to titrate the medications to full effect and plan for a safe and effective discharge. The current plan is for or Thursday this week. Time Spent 25 minutes [id number]. Thursday Vital Signs Vital Signs Date Time Temp Pulse Resp B/P (MAP) Pulse Ox O2 Delivery O2 Flow Rate FiO2 09/07/18 07:01 97.7 70 14 107/73 (84) 09/05/18 07:47 Room Air 09/04/18 22:58 99 Current Medications Current Medications Medications (Trade) Dose Ordered Sig/Keesha Route PRN Reason Start Time Stop Time Status Last Admin Dose Admin Acetaminophen (Tylenol Tab) 650 mg Q6HP PRN PO HEADACHE or DISCOMFORT 09/02/18 17:30 09/07/18 08:02 Al Hydrox/Mg Hydrox/Simethicone (Mylanta) 30 ml Q4HP PRN PO HEARTBURN/INDIGESTION 09/02/18 17:30 Bupropion HCl (Wellbutrin Xl) 150 mg DAILY PO 09/03/18 09:00 09/07/18 08:01 Home Med (Med Rec Complete!) ASDIRECTED XX 09/02/18 17:45 09/02/18 17:45 DC Magnesium Hydroxide (Milk Of Magnesia) 30 ml DAILYPRN PRN PO CONSTIPATION 09/02/18 17:30 09/03/18 21:21 Nicotine (Nicoderm Cq 21mg) 1 patch DAILY TD 09/03/18 09:00 09/07/18 08:02 Olanzapine (ZyPREXA ZYDIS) 5 mg Q8HP PRN PO ANXIETY/AGITATION 09/02/18 17:30 09/05/18 19:30 Ramelteon (Rozerem) 8 mg QHS PO 09/03/18 21:00 09/06/18 21:40 Trazodone HCl (Desyrel) 50 mg QHSP PRN PO INSOMNIA 09/02/18 17:30 09/03/18 10:05 DC 09/02/18 21:59 Zolpidem Tartrate (Ambien) 10 mg QHSP PRN PO insomnia 09/05/18 15:00 09/07/18 14:12 DC 09/06/18 22:35 Allergies Coded Allergies: FISH (Verified Allergy, Severe, anaphylaxis, 01/05/18) KALE ARMANDO DO Sep 07, 2018 16:01
[2018-09-07 18:12] VITALS: BP 136/70
[2018-09-07] MEDS: RAMELTEON 8 MG TAB (ROZEREM) PO SCH (21:59)
[2018-09-08 06:41] VITALS: BP 112/72
[2018-09-08] MEDS: buPROPion **XL** TABLET 150MG (WELLBUTRIN XL) PO SCH (08:23)
[2018-09-08] MEDS: NICOTINE 21MG/24HR 1 EA TRANSDERMAL TD SCH (08:23)
--- NOTE | 2018-09-08 09:55 | MHIPNPDOC ---
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 Interval History The patient is met with today and he describes he's generally feeling better. He had taken the previous discussion and psychotherapy to heart from the previous day and had been living more "in the moment." He described he'd a positive discussion with his mom about mindfulness and reports that he's feeling much more prepared for discharge tomorrow. He reports he's tolerating the Wellbutrin well with no side effects. 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 He reports he's tolerating the Rozerem well, however, he wonders whether the Ambien discontinue had some rebound insomnia. Otherwise, he reports he is doing well. He is clean shaven and nursing has no concerns. He's had no behavioral problems overnight and is reportedly doing well in groups. Review Of Systems Reports improved anxiety and worry, improved depression, hopelessness with improved energy. Psychotherapy None on this visit. Vital Signs Reviewed. Mental Status Examination General: Well dressed with good hygiene Speech: Spontaneous and fluid Thought processes: Linear and logical MSK: Smooth and coordinated gait, no signs of tremors or involuntary orofacial movements Thought content: Future orientated Abstract reasoning, and computation: Intact Description of associations: Intact Description of abnormal or psychotic thoughts: Denies any suicidal or homicidal ideation. Denies any auditory or visual hallucinations. Does not appear to be responding to internal stimuli. Does not appear to be endorsing any bizarre or paranoid ideation. Judgment: fair Insight: fair Orientation: Alert and orientated 3 Cognition: Grossly normal Recent and remote memory: Intact Attention span and concentration: Intact Fund of knowledge: Adequate Mood: "okay" Affect: Euthymic with a full range Diagnoses Unspecified depressive disorder: Stable. Cannabis use disorder: Stable. Assessment and Plan The patient has made strong progress in his admission and has done well. It's unclear whether he has adjustment or primary mental health problem. However, we'll continue Wellbutrin 150 mg daily extended-release and Rozerem 8 mg nightly as this combination will likely serve him better as an outpatient as Ambien is unlikely to be allowed to be filled at [employer]. 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 Time Spent 15 minutes [id number]. Vital Signs Vital Signs Date Time Temp Pulse Resp B/P (MAP) Pulse Ox O2 Delivery O2 Flow Rate FiO2 09/08/18 06:41 99.4 78 16 112/72 (85) 09/05/18 07:47 Room Air 09/04/18 22:58 99 Current Medications Current Medications Medications (Trade) Dose Ordered Sig/Keesha Route PRN Reason Start Time Stop Time Status Last Admin Dose Admin Acetaminophen (Tylenol Tab) 650 mg Q6HP PRN PO HEADACHE or DISCOMFORT 09/02/18 17:30 09/07/18 22:46 Al Hydrox/Mg Hydrox/Simethicone (Mylanta) 30 ml Q4HP PRN PO HEARTBURN/INDIGESTION 09/02/18 17:30 Bupropion HCl (Wellbutrin Xl) 150 mg DAILY PO 09/03/18 09:00 09/08/18 08:23 Home Med (Med Rec Complete!) ASDIRECTED XX 09/02/18 17:45 09/02/18 17:45 DC Magnesium Hydroxide (Milk Of Magnesia) 30 ml DAILYPRN PRN PO CONSTIPATION 09/02/18 17:30 09/03/18 21:21 Nicotine (Nicoderm Cq 21mg) 1 patch DAILY TD 09/03/18 09:00 09/08/18 08:23 Olanzapine (ZyPREXA ZYDIS) 5 mg Q8HP PRN PO ANXIETY/AGITATION 09/02/18 17:30 09/05/18 19:30 Ramelteon (Rozerem) 8 mg QHS PO 09/03/18 21:00 09/07/18 21:59 Trazodone HCl (Desyrel) 50 mg QHSP PRN PO INSOMNIA 09/02/18 17:30 09/03/18 10:05 DC 09/02/18 21:59 Zolpidem Tartrate (Ambien) 10 mg QHSP PRN PO insomnia 09/05/18 15:00 09/07/18 14:12 DC 09/06/18 22:35 Allergies Coded Allergies: FISH (Verified Allergy, Severe, anaphylaxis, 01/05/18) KALE ARMANDO DO Sep 08, 2018 09:55
[2018-09-08 18:00] VITALS: BP 130/77
[2018-09-08] MEDS: RAMELTEON 8 MG TAB (ROZEREM) PO SCH (21:47)
[2018-09-09] MEDS ORDERED: QUEtiapine FUMARATE 50 MG TAB PO ONE
[2018-09-09 06:39] VITALS: BP 114/59
[2018-09-09] MEDS: buPROPion **XL** TABLET 150MG (WELLBUTRIN XL) PO SCH (08:57)
[2018-09-09] MEDS: NICOTINE 21MG/24HR 1 EA TRANSDERMAL TD SCH (08:59)
[2018-09-09] MEDS ORDERED: NICO21PAT TD (09:18)
[2018-09-09] MEDS ORDERED: BUPR150T3 PO (09:18)
[2018-09-09] MEDS ORDERED: MELA3TAB49 PO (09:18)
--- NOTE | 2018-09-09 09:20 | MHDSPDOC ---
[facility] Discharge Summary Discharge Summary DATE OF ADMISSION: Sep 02, 2018 at 20:33 DATE OF DISCHARGE: 09/09/18 Date of Service: 09/09/2018 Diagnoses Unspecified depressive disorder. Cannabis use disorder. 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 Consultants Involved Hospitalist/PCP screening Treatment and Progress On The Unit The patient was admitted to the inpatient unit and subsequently started on Wellbutrin 150 mg daily with positive effects. Psychotherapy and group psychotherapy focusing on mindfulness improved the patient's anxiety and depression and he made significant improvements over the time he was here. He denied having any suicidal thoughts shortly after presenting to the inpatient unit, but did notably had difficulties worrying about his command structure and his future in the [employer]. He was able to work through these and demonstrated very good insight and requested discharge on . He at that time did not meet involuntary criteria as he had not been demonstrating suicidal or homicidal ideation and had been attending to his needs on the unit and electing for further voluntary admission and thus was discharged. He was additionally tried on Ambien for a short time for sleep, but subsequently switched to Rozerem 8 mg that was helpful. However, he was discharged on melatonin as his insurance would not pay for Rozerem. After discussing with patient the benefits, he elected to continue on melatonin 3 mg nightly. 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 His depressive symptoms are difficult to parse out from adjustment versus substance induced versus endogenous depression. However, he did make solid improvements on a low dose of Wellbutrin and good psychoth erapy. Mental Status Examination General: Well dressed with good hygiene Speech: Spontaneous and fluid Thought processes: Linear and logical MSK: Smooth and coordinated gait, no signs of tremors or involuntary orofacial movements Thought content: Future orientated Abstract reasoning, and computation: Intact Description of associations: Intact Description of abnormal or psychotic thoughts: Denies any suicidal or homicidal ideation. Denies any auditory or visual hallucinations. Does not appear to be r esponding to internal stimuli. Does not appear to be endorsing any bizarre or paranoid ideation. Judgment: fair Insight: fair Orientation: Alert and orientated 3 Cognition: Grossly normal Recent and remote memory: Intact Attention span and concentration: Intact Fund of knowledge: Adequate Mood: "okay" Affect: Euthymic with a full range Follow Up The social work team worked during the predischarge meeting in order to evaluate for further issues of lethality address them fully before discharge. They worked on safety planning with the patient's family members in order to ensure that the patient will have a safe and effective discharge. Time Spent The amount of time spent in the coordination of care for this patient was approximately 30 minutes. Vital Signs/I&Os Vital Signs Date Time Temp Pulse Resp B/P (MAP) Pulse Ox O2 Delivery O2 Flow Rate FiO2 09/09/18 06:39 98.0 77 12 114/59 (77) 09/05/18 07:47 Room Air 09/04/18 22:58 99 Medications Scheduled Bupropion Hcl (Bupropion Xl) 150 Mg Tab.er.24h, 150 MG PO DAILY for mood for 7 Days, #7 Melatonin (Melatonin) 3 Mg Tab.rapdis, 1 TAB PO QPM for sleep for 30 Days, #30 Nicotine (Nicotine Patch) 21 Mg Patch.td24, 1 PATCH TD DAILY for mood for 30 Days, #30 Allergies Coded Allergies: FISH (Verified Allergy, Severe, anaphylaxis, 01/05/18) KALE ARMANDO DO Sep 09, 2018 09:20
== END 2018-09-09 12:03 | disposition home or self-care (01) | DRG 881 ==
LOC: M ED 14:00 → M PSY 20:33
PROVIDERS: ADMIT Psychiatry & Neurology Psychiatry; ATTEND Psychiatry & Neurology Addiction Medicine
DX: F32.9 Major depressive disorder, single episode, unspecified (principal); F17.200 Nicotine dependence, unspecified, uncomplicated; F10.10 Alcohol abuse, uncomplicated; F12.10 Cannabis abuse, uncomplicated; Z91.013 Allergy to seafood; M25.561 Pain in right knee

== ENCOUNTER → 2024-12-19 | Outpatient (REF) | payer MEDICAID ==
[~2024-12-19] MED LIST changes: +BUPR150T12 PO; +CYCL-707 PO; -CYCL10TA PO; +EPIP0.3I2 IM; -IBUP-1022 PO; +IBUP600T42 PO; +MELA3TAB49 PO
[2024-12-19 17:12] LABS: FREE T4 0.94 NG/DL (0.89-1.76)
== END ==
LOC: M LAB REF 16:21
PROVIDERS: ATTEND Student in an Organized Health Care Education/Training Program
DX: R79.89 Other specified abnormal findings of blood chemistry (principal)

== ENCOUNTER 2024-12-27 15:59 | Emergency (ER) | payer MEDICAID, OTHER ==
[~2024-12-27] VITALS: Ht 167.6 cm; Wt 92.2 kg
[2024-12-27 16:01] VITALS: TEMP 97.6
[2024-12-27 17:47] VITALS: BP 139/83; O2SAT 96
== END 2024-12-27 17:58 | disposition left against medical advice (07) ==
LOC: M ED 15:59
DX: Z53.21 Procedure and treatment not carried out due to patient leaving prior to being seen by health care provider (principal)

== ENCOUNTER 2025-01-21 04:13 | Emergency (ER) | payer OTHER ==
[~2025-01-21] VITALS: Ht 167.6 cm; Wt 90.7 kg
[2025-01-21] MEDS: KETOROLAC 60 MG/2 ML VIAL IM ONE (05:40)
[2025-01-21 07:47] VITALS: BP 138/65; TEMP 97.7; O2SAT 99
== END 2025-01-21 07:50 | disposition home or self-care (01) ==
LOC: M ED 04:13
DX: S50.12XA Contusion of left forearm, initial encounter (principal); W17.89XA Other fall from one level to another, initial encounter; F12.10 Cannabis abuse, uncomplicated; F10.10 Alcohol abuse, uncomplicated; F17.200 Nicotine dependence, unspecified, uncomplicated; Y92.89 Other specified places as the place of occurrence of the external cause; Y93.89 Activity, other specified; Y99.0 Civilian activity done for income or pay; Z79.899 Other long term (current) drug therapy; Z91.013 Allergy to seafood
CPT/HCPCS: 73090; 96372; 99284; J1885